=== PATIENT | male | born 1955 | race Caucasian/White ===

== ENCOUNTER 2017-10-13 09:39 | Outpatient (CLI) | payer OTHER ==
--- NOTE | 2017-10-13 13:19 | MRI ---
MRI OF THE LEFT ANKLE WITHOUT CONTRAST: INDICATION: History of injury in July with concerns for ankle ligament sprain and closed fracture of the dis satya fibula. COMPARISON: Radiographs dated 09/06/17 of the left ankle. FINDINGS: There is increased T2 signal seen within the muscle belly of the FHL. There is mild fluid surroundin g the FHL tendon posterior to the ankle joint as well as at the knot of Dave. The medial and latera l flexor tendons are intact. The extensor tendons are intact. There is mild tendinosis of the Achil les tendon. No visible tear is grossly evident. The ATFL is thickened but intact. The calcaneofibular ligament is attached to the ununited obliquely oriented fracture involving the lateral malleolus seen on the comparison radiograph. The posterior talofibular ligament is also attached to this fracture fragment. The syndesmotic ligaments are intac t. The deep deltoid is intact. Plantar fascia appear within normal limits. Sinus tarsi is normal-appearing. There is mild joint ef fusion in the tibiotalar joint. IMPRESSION: 1. 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 2. Tenosynovitis of the flexor hallucis longus at the level of the knot of Dave. 3. Muscular strain suspected involving the flexor hallucis longus within the visualized distal forel eg. 4. Mild Achilles tendinosis. 5. Ununited obliquely oriented fracture involving the distal posterior lateral malleolar tip. The c alcaneofibular and posterior talofibular ligament does attach to the small ununited distal fracture f ragment of the posterior distal lateral malleolus. POS: [facility]
== END 2017-10-13 09:40 | disposition home or self-care (01) ==
LOC: MRI 09:39
PROVIDERS: ATTEND Family Medicine
DX: S82.832D Other fracture of upper and lower end of left fibula, subsequent encounter for closed fracture with routine healing (principal); S90.32XD Contusion of left foot, subsequent encounter; S93.412D Sprain of calcaneofibular ligament of left ankle, subsequent encounter; S93.492A Sprain of other ligament of left ankle, initial encounter; M65.872 Other synovitis and tenosynovitis, left ankle and foot; T14.8XXA Other injury of unspecified body region, initial encounter; M67.874 Other specified disorders of tendon, left ankle and foot; S82.892A Other fracture of left lower leg, initial encounter for closed fracture

== ENCOUNTER 2018-05-31 10:43 | Emergency (ER) | payer SELFPAY ==
[2018-05-31 11:29] LABS: Bilirubin Negative (Negative); Blood, Urine Negative (Negative); Glucose, Urine (Dipstick) Negative (Negative); Leukocyte Negative (Negative); Nitrite Negative (Negative); Protein, Urine (Dipstick) Negative (Neg-Trace); Urobilinogen 0.2 mg/dL (0.2-1.0)
[2018-05-31 11:43] LABS: Clarity CLEAR (Clear)
--- NOTE | 2018-05-31 11:47 | RAD ---
CHEST 1 VIEW: Date: 05/31/18 HISTORY: Weakness. Mass. COMPARISON: Chest radiograph from 2015. FINDINGS: Old right humeral diaphyseal fracture. Pulmonary arteries are mildly dilated. There is focal opacity in the right lower lobe. No pneumothorax or large effusion. Lungs are slightly hyperinflated. IMPRESSION: Abnormal nodule in the right lower lobe. Nonemergent follow-up chest CT recommended. CODE LN. POS: [facility]
[2018-05-31 11:55] LABS: #Basophils 0.1 thou/uL (0.0-0.2); #Eosinphils 0.1 thou/uL (0.0-0.7); #Lymphocytes 1.2 thou/uL (1.20-3.40); #Monocytes 0.8 thou/uL (0.11-0.59); #Neutrophils 4.2 thou/uL (1.40-6.50); %Basophils 0.8 % (0.0-1.0); %Eosinophils 1.5 % (0.0-10.0); %Lymphocytes 19.3 % (21.0-51.0); %Neutrophils 66.3 % (42.0-75.0); Hemoglobin 13.7 g/dL (14.0-18.0); Mean Corpuscular HGB CONC 34.9 g/dL (32.0-36.0); Mean Corpuscular Hemoglobin 35.5 pg (27.0-31.0); Platelet Count 134 thou/uL (130-400); RBC Distribution Width 10.6 % (11.5-14.5); Red Blood Cell (RBC) Count 3.86 mill/uL (4.70-6.10); White Blood Cell (WBC) Count 6.4 thou/uL (4.8-10.8)
[2018-05-31 12:17] LABS: ALT (SGPT) 67 U/L (8-55); AST (SGOT) 131 U/L (5-34); Albumin 3.7 g/dL (3.4-4.8); Alkaline Phosphatase 88 U/L (40-150); Anion Gap 15 mmol/L (10-20); BUN (Urea Nitrogen) Less than 4 mg/dL (8.4-25.7); Bilirubin, Total 0.6 mg/dL (0.2-1.2); Calc. Creatinine Clearance 0 mL/min (70-130); Calcium 9.2 mg/dL (7.8-10.44); Carbon Dioxide 26 mmol/L (23-31); Chloride 95 mmol/L (98-107); Estimated GFR-MDRD Greater than 90; Globulin 3.6 g/dL (2.4-3.5); Glucose 74 mg/dL (80-115); Lipase 38 U/L (8-78); Potassium 3.9 mmol/L (3.5-5.1); Protein, Total 7.3 g/dL (5.8-8.1); Sodium 132 mmol/L (136-145)
[2018-05-31 12:21] LABS: CKMB 0.7 ng/mL (0-6.6); Troponin I Less than 0.010 ng/mL (< 0.028)
--- NOTE | 2018-05-31 14:17 | CT ---
CT CHEST WITH IV CONTRAST: HISTORY: A 63-year-old male with a history of cough with one year of generalized weakness and malaise. Thirty pound weight loss. Every-day smoker. FINDINGS: There are bilateral bullous changes and bilateral honeycombing, evidence for chronic interstitial jered g disease. There are numerous small, less than 0.5 cm in diameter, subpleural and pleural based nodu les bilaterally. Fatty changes in the liver. Small hiatal hernia. IMPRESSION: 1. Numerous small, less than 0.5 cm nodules, throughout both right and left lungs. Consider one yea r follow-up low dose screening chest CT scan for further assessment. 2. Bilateral bullous changes, as well as bilateral honeycombing and interstitial increased markings, evidence for nonspecific chronic interstitial lung disease. 3. No mediastinal mass, adenopathy, pleural effusion, or pericardial effusion. 4. Fatty changes of the liver. 5. Small hiatal hernia. POS: [facility]
== END 2018-05-31 15:49 | disposition home or self-care (01) ==
LOC: ERS 10:43
DX: J84.9 Interstitial pulmonary disease, unspecified (principal); R91.1 Solitary pulmonary nodule; F17.210 Nicotine dependence, cigarettes, uncomplicated; Z79.899 Other long term (current) drug therapy
CPT/HCPCS: 71045; 71260; 80053; 81003; 82553; 83690; 84443; 84484; 85025; 93005

== ENCOUNTER 2023-09-05 08:46 | Outpatient (CLI) | payer OTHER | END 2023-09-05 08:47 | disposition home or self-care (01) | LOC: NM 08:46 | PROVIDERS: ATTEND Anesthesiology Pain Medicine | DX: S22.060A Wedge compression fracture of T7-T8 vertebra, initial encounter for closed fracture (principal); R94.8 Abnormal results of function studies of other organs and systems | CPT/HCPCS: 78306; A9503 ==

== ENCOUNTER 2023-11-28 12:14 | Emergency (ER) | payer OTHER ==
[2023-11-28] MEDS ORDERED: HYDROcodone/Acetaminophen 10/325 mg Tablet ONE (13:46)
[2023-11-28] MEDS ORDERED: Ketorolac Tromethamine 30 MG (1 mL) VIAL ONE (13:46)
[2023-11-28 13:57] LABS: #Basophils 0.1 thou/uL (0.0-0.2); #Eosinphils 0.1 thou/uL (0.0-0.7); #Monocytes 1.1 thou/uL (0.11-0.59); #Neutrophils 5.8 thou/uL (1.40-6.50); %Eosinophils 0.9 % (0.0-10.0); %Lymphocytes 22.3 % (21.0-51.0); %Monocytes 12.3 % (0.0-10.0); %Neutrophils 63.3 % (42.0-75.0); Hematocrit 36.2 % (42.0-52.0); Hemoglobin 11.7 g/dL (14.0-18.0); Mean Corpuscular HGB CONC 32.3 g/dL (32.0-36.0); Mean Corpuscular Hemoglobin 30.1 pg (27.0-31.0); Mean Corpuscular Volume 93.1 fl (78.0-98.0); Mean Platelet Volume 9.9 fL (7.4-10.4); Platelet Count 344 10x3/uL (130-400); RBC Distribution Width 13.2 % (11.5-14.5); Red Blood Cell (RBC) Count 3.89 mill/uL (4.70-6.10); White Blood Cell (WBC) Count 9.2 10x3/uL (4.8-10.8)
[2023-11-28 14:21] LABS: ALT (SGPT) 7 U/L (8-55); AST (SGOT) 15 U/L (5-34); Albumin 3.7 g/dL (3.4-4.8); Alkaline Phosphatase 82 U/L (40-110); Anion Gap 12 mmol/L (10-20); BUN (Urea Nitrogen) 7 mg/dL (8.4-25.7); Bilirubin, Total 0.8 mg/dL (0.2-1.2); CRP (Inflammatory) 7.6 mg/dL (= or < 0.5); Calc. Creatinine Clearance 0 mL/min (70-130); Calcium 9.2 mg/dL (7.8-10.44); Carbon Dioxide 26 mmol/L (23-31); Chloride 100 mmol/L (98-107); Estimated GFR 74; Glucose 97 mg/dL (80-115); Potassium 3.9 mmol/L (3.5-5.1); Protein, Total 7.7 g/dL (5.8-8.1); Sodium 134 mmol/L (136-145); Uric Acid 6.1 mg/dL (3.5-7.2)
== END 2023-11-28 14:39 | disposition home or self-care (01) ==
LOC: ERS 12:14
DX: L03.114 Cellulitis of left upper limb (principal); G89.29 Other chronic pain; M54.9 Dorsalgia, unspecified; J43.9 Emphysema, unspecified; F17.210 Nicotine dependence, cigarettes, uncomplicated
CPT/HCPCS: 36415; 80053; 84550; 85025; 86140; 96372; J1885